=== PATIENT | female | born 1970 | race African-American/Black ===

== ENCOUNTER 2018-12-04 17:36 | Emergency (ER) | payer MEDICAID ==
[~2018-12-04] VITALS: Ht 172.7 cm; Wt 73.0 kg
[~2018-12-04 17:36] MED LIST: ATOR20TA65 PO; [UNRECOGNIZED DRUG - OTHER]
[2018-12-04 23:40] LABS: BASOPHILS % 0.9 % (0.0-2.0); EOSINOPHILS % 6.1 % (0.0-5.0); HEMATOCRIT. 38.5 % (36.0-48.0); HEMOGLOBIN. 13.4 g/dL (12.0-16.0); LYMPHOCYTES % 33.8 % (20.0-50.0); MEAN CORPUSCULAR HEMOGLOBIN 31.7 pg (28.0-32.0); MEAN CORPUSCULAR VOLUME 91.1 fL (81.0-99.0); MEAN PLATELET VOLUME 7.6 fl (7.4-10.4); MONOCYTES % 8.2 % (2.0-8.0); PLATELET 305 x1000/uL (130-400); RED BLOOD CELL COUNT 4.23 mill/uL (4.2-5.4)
[2018-12-04 23:43] LABS: CHLORIDE 106 mEq/L (98-107)
[2018-12-05 01:19] VITALS: BP 122/78
== END 2018-12-05 01:22 | disposition home or self-care (01) ==
LOC: ER 17:36
DX: D25.9 Leiomyoma of uterus, unspecified (principal); I10 Essential (primary) hypertension
CPT/HCPCS: 36415; 76830; 76856; 80048; 81025; 99284

== ENCOUNTER 2019-06-25 17:18 | Emergency (ER) | payer MEDICAID ==
[~2019-06-25] VITALS: Ht 167.6 cm; Wt 75.0 kg
[2019-06-25] MEDS ORDERED: PREDNISONE 20MG TABLET PO ONE (18:00)
[2019-06-25] MEDS ORDERED: ALBUTEROL (0.083%) 2.5MG/3ML NEB HHN ONE (18:00)
[2019-06-25 19:28] VITALS: BP 118/75
== END 2019-06-25 19:35 | disposition home or self-care (01) ==
LOC: ER 17:18
DX: R05 Cough (principal); R06.2 Wheezing; I10 Essential (primary) hypertension
CPT/HCPCS: 71045; 94640; 99283; J7512; J7611; Z7610

== ENCOUNTER 2021-06-03 11:10 | Emergency (ER) | payer MEDICAID ==
[~2021-06-03] VITALS: Ht 172.7 cm; Wt 77.0 kg
[2021-06-03 12:24] LABS: CLARITY URINE CLOUDY (CLEAR); COLOR URINE YELLOW (YELLOW); KETONES URINE TRACE (NEGATIVE); LEUKOCYTE ESTERASE URINE NEGATIVE (NEGATIVE); NITRITE URINE NEGATIVE (NEGATIVE); OCCULT BLOOD URINE NEGATIVE (NEGATIVE); PROTEIN URINE NEGATIVE (NEGATIVE); SPECIFIC GRAVITY URINE 1.026 (1.005-1.030); UROBILINOGEN URINE 0.2 E.U./dL (0.2-1.0)
[2021-06-03 12:32] VITALS: BP 126/75
[2021-06-03] MEDS ORDERED: VAGICR TOP (13:01)
== END 2021-06-03 13:31 | disposition home or self-care (01) ==
LOC: ER 11:10
DX: N89.8 Other specified noninflammatory disorders of vagina (principal); I10 Essential (primary) hypertension; E78.5 Hyperlipidemia, unspecified; Z79.899 Other long term (current) drug therapy
CPT/HCPCS: 81003; 81025; 87210; 99283; 99284

== ENCOUNTER 2023-02-18 04:39 | Emergency (ER) | payer MEDICAID, OTHER ==
[~2023-02-18] VITALS: Ht 172.7 cm; Wt 69.0 kg
[~2023-02-18 04:39] MED LIST changes: +VAGICR TOP
[2023-02-18 04:48] VITALS: O2SAT 100
[2023-02-18 08:03] LABS: CLARITY URINE CLEAR (CLEAR); COLOR URINE YELLOW (YELLOW); GLUCOSE URINE NEGATIVE (NEGATIVE); KETONES URINE NEGATIVE (NEGATIVE); LEUKOCYTE ESTERASE URINE NEGATIVE (NEGATIVE); NITRITE URINE NEGATIVE (NEGATIVE); OCCULT BLOOD URINE NEGATIVE (NEGATIVE); PROTEIN URINE NEGATIVE (NEGATIVE); SPECIFIC GRAVITY URINE 1.021 (1.005-1.030); UROBILINOGEN URINE 0.2 E.U./dL (0.2-1.0)
[2023-02-18] MEDS ORDERED: METR60GE TP (09:30)
[2023-02-18] MEDS ORDERED: DIF15 MT (09:30)
[2023-02-18] MEDS ORDERED: METR70GE5 VG (09:30)
[2023-02-18 09:48] VITALS: BP 135/77; PULSE 69; RESP 18; TEMP 98.7
== END 2023-02-18 09:57 | disposition home or self-care (01) ==
LOC: ER 04:39
DX: N98.9 Complication associated with artificial fertilization, unspecified (principal); E78.00 Pure hypercholesterolemia, unspecified; I10 Essential (primary) hypertension
CPT/HCPCS: 81003; 87210; 99284

== ENCOUNTER 2023-07-11 03:30 | Emergency (ER) | payer MEDICAID ==
[~2023-07-11] VITALS: Ht 175.3 cm; Wt 74.8 kg
[~2023-07-11 03:30] MED LIST changes: +DIF15 MT; +METR70GE5 VG
[2023-07-11 03:33] VITALS: O2SAT 100
[2023-07-11] MEDS ORDERED: ACETAMINOPHEN 325MG TABLET PO ONE (05:45)
[2023-07-11] MEDS ORDERED: KETOROLAC 60MG/2ML VIAL IM ONE (05:45)
[2023-07-11 06:52] LABS: GLUCOSE URINE NEGATIVE (NEGATIVE); KETONES URINE NEGATIVE (NEGATIVE)
[2023-07-11 07:08] LABS: CLARITY URINE CLEAR (CLEAR); COLOR URINE DARK YELLOW (YELLOW)
[2023-07-11 07:09] LABS: NITRITE URINE NEGATIVE (NEGATIVE); OCCULT BLOOD URINE NEGATIVE (NEGATIVE); PH URINE 5.5 (4.5-8.0); PROTEIN URINE NEGATIVE (NEGATIVE); SPECIFIC GRAVITY URINE 1.031 (1.005-1.030)
[2023-07-11 07:10] LABS: LEUKOCYTE ESTERASE URINE NEGATIVE (NEGATIVE)
[2023-07-11] MEDS ORDERED: IBUP-1523 MT (08:49)
[2023-07-11] MEDS ORDERED: TOPUD MT (08:49)
[2023-07-11 09:05] VITALS: BP 117/81; PULSE 100; RESP 16; TEMP 98.2
== END 2023-07-11 09:19 | disposition home or self-care (01) ==
LOC: ER 03:30
DX: M54.9 Dorsalgia, unspecified (principal); E78.00 Pure hypercholesterolemia, unspecified; I10 Essential (primary) hypertension
CPT/HCPCS: 99284; 81003; 81025; 72100; J1885